=== PATIENT | male | born 1965 | race Caucasian/White ===

== ENCOUNTER 2020-04-01 19:48 | Emergency (ER) | payer BC ==
--- NOTE | 2020-04-02 09:13 | NUR ---
SEE DOWNTIME CHARTING
== END 2020-04-01 21:52 | disposition home or self-care (01) ==
LOC: EDUNIT# 19:48 → SED 19:48
DX: T40.995A Adverse effect of other psychodysleptics [hallucinogens], initial encounter (principal); Y92.89 Other specified places as the place of occurrence of the external cause
CPT/HCPCS: 71045; 93005; 99283